=== PATIENT | female | born 1980 | race Caucasian/White ===

== ENCOUNTER 2018-06-26 15:07 | Outpatient (REF) | payer MEDICAID, SELFPAY ==
[2018-06-26 20:46] LABS: HCT 39.7 % (36.0-46.0); HGB 12.8 g/dL (12.0-15.5); Mean Corp. HGB Concentration 32.2 g/dL (32.0-36.0); Mean Corpuscular Hemoglobin 29.8 pg (27.0-33.0); Mean Corpuscular Volume 92.5 fL (80-95); Mean Platelet Volume 12.7 fL (8.0-11.0); Platelet Count 182 x1000/uL (130-400); RBC 4.29 m/cumm (4.00-5.20); White Blood Cell Count 5.33 k/cumm (4.4-10.8)
[2018-06-26 21:26] LABS: Magnesium 1.9 mg/dL (1.8-2.4); TSH (W/Ref FT4) 2.88 uIU/mL (0.358-3.74)
[2018-06-26 22:09] LABS: Vitamin B12 449 pg/mL (193-986)
[2018-06-29 05:22] LABS: Vitamin D 25 Total 49.1 ng/ml (30-100)
[2018-06-29 17:31] LABS: Zinc, Serum 0.54 mcg/mL (0.66-1.10)
== END 2018-06-26 15:27 ==
LOC: NCHCN 15:07
PROVIDERS: PCP Family Medicine; Visit Provider Family Medicine
DX: R53.83 Other fatigue (principal); E06.3 Autoimmune thyroiditis
CPT/HCPCS: 82306; 85027; 82607; 83735; 84443; 84630

== ENCOUNTER 2019-07-22 22:06 | Outpatient (REF) | payer MEDICAID, SELFPAY ==
[2019-07-26 13:33] LABS: Chlamydia Result Negative (Negative); GC Result Negative (Negative); Specimen Description CERVIX
== END 2019-07-22 22:26 ==
LOC: NCHCN 22:06
PROVIDERS: PCP Family Medicine; Visit Provider Nurse Practitioner Family
DX: Z11.3 Encounter for screening for infections with a predominantly sexual mode of transmission (principal)
CPT/HCPCS: 87491; 87591